=== PATIENT | male | born 1940 | race Caucasian/White ===

== ENCOUNTER → 2017-08-24 | Outpatient (CLI) | payer OTHER, MEDICARE | LOC: BMCIMAGING 15:01 | PROVIDERS: ATTEND Registered Nurse General Practice | DX: Z13.820 Encounter for screening for osteoporosis (principal); M85.80 Other specified disorders of bone density and structure, unspecified site ==

== ENCOUNTER → 2018-04-19 | Outpatient (CLI) | payer OTHER, MEDICARE | LOC: BHFA 09:15 | PROVIDERS: ATTEND Internal Medicine Interventional Cardiology | DX: I48.91 Unspecified atrial fibrillation (principal) ==

== ENCOUNTER → 2018-08-25 | Outpatient (CLI) | payer OTHER, MEDICARE | LOC: BMCIMAGING 14:47 | PROVIDERS: ATTEND Physician Assistant | DX: N43.3 Hydrocele, unspecified (principal) ==

== ENCOUNTER 2018-09-01 14:41 | Day surgery (SDC) | payer OTHER, MEDICARE ==
[2018-09-01] MEDS ORDERED: ceFAZolin 2 GM/DEXTROSE 100 ML IV ONE (14:47)
[2018-09-01] MEDS ORDERED: LR 1,000 ML IV ONE (14:48)
--- NOTE | 2018-09-01 15:07 | POSTANESTH ---
Post Anesthetic Evaluation Cardiovascular Status: Normal, Stable Respiratory Status: Normal, Stable Level of Consciousness/Mental Status: Can Participate in Eval, Moderately Sleepy Pain Control: Adequate, Prn Tx Ordered Nausea/Vomiting Control: Adequate, Prn Tx Ordered Complications Possibly Related to Anesthesia: None Noted
--- NOTE | 2018-09-01 15:11 | PDANEPAE ---
ANE History of Present Illness 78 yo male with recurrent inguinal hernia for open repair. ANE Past Medical History - Cardiovascular History Hx Hypertension: No Hx Arrhythmias: Yes Hx Chest Pain: No Hx Coronary Artery / Peripheral Vascular Disease: No Hx CHF / Valvular Disease: No Hx Palpitations: No Cardiovascular History Comment: afib - s/p CV x1 in 2013, in NSR currently - Pulmonary History Hx COPD: No Hx Asthma/Reactive Airway Disease: No Hx Recent Upper Respiratory Infection: No Hx Oxygen in Use at Home: No Hx Sleep Apnea: No Sleep Apnea Screening Result - Last Documented: Negative - Neurologic History Hx Cerebrovascular Accident: Yes Hx Seizures: No Hx Dementia: No Neurologic History Comment: parkinsons. spinal stenosis. poss TIA - Endocrine History Hx Diabetes: No Hypothyroid: Yes Hyperthyroid: No Obesity: no - Renal History Hx Renal Disorders: Yes Renal History Comment: hydrocoele. hx of hematuria. pt reports having the bladder of a 78 yo man - Liver History Hx Hepatic Disorders: No - Neurological & Psychiatric Hx Hx Neurological and Psychiatric Disorders: No - Cancer History Hx Cancer: Yes Cancer History Comment: skin - Congenital Disorder History Hx Congenital Disorders: No - GI History Hx Gastrointestinal Disorders: Yes Gastrointestinal History Comment: hx of hernia repair. chronic constipation - Other Health History Other Health History: wears reading glasses. diplopia - Chronic Pain History Chronic Pain: Yes (lower back) - Surgical History Prior Surgeries: hernia repair x2. cardioversion in 2013 ANE Review of Systems Review of Systems: - Exercise capacity METS (RN): 4 METS - Systems Constitutional: Reports: no symptoms ANE Patient History - Allergies Allergies/Adverse Reactions: diclofenac Allergy (Verified 08/31/18 10:27) Rash - Home Medications Home Medications: Levothyroxine [Synthroid 50 mcg (RX)] 05/21/12 [Last Taken 05/20/12] Aspirin 81mg (*) 08/31/18 [Last Taken 08/24/18] Carbidopa-Levo 25-100 mg Odt 08/31/18 [Last Taken Unknown] Diltiazem 08/31/18 [Last Taken Unknown] Docusate Sodium 08/31/18 [Last Taken Unknown] Herbals/Supplements -Info Only 08/31/18 [Last Taken 08/31/18] Ketoconazole 08/31/18 [Last Taken Unknown] Myrbetriq 08/31/18 [Last Taken Unknown] Rasagiline Mesylate 08/31/18 [Last Taken Unknown] - NPO status NPO Since - Liquids (Date): 09/01/18 NPO Since - Liquids (Time): 13:00 NPO Since - Solids (Date): 08/31/18 - Anes Hx Anes Hx: no prior problems - Smoking Hx Smoking Status: Never smoked - Alcohol Use Alcohol Use: Rarely - Family Anes Hx Family Anes Hx: neg - N/A Family Hx Anesthesia Complications: none ANE Labs/Vital Signs - Vital Signs Vital Signs: reviewed preoperatively; see RN documention for details Height: 180.34 cm Weight: 77.111 kg ANE Physical Exam - Airway Neck exam: decreased ROM Mallampati Score: Class 2 Mouth exam: poor dentition - Pulmonary Pulmonary: clear to auscultation - Cardiovascular Cardiovascular: regular rate and rhythym - ASA Status ASA Status: III ANE Anesthesia Plan Anesthesia Plan: GA w LMA
[2018-09-01] MEDS ORDERED: EPINEPHrine 1 MG/ML INJ ONE (15:48)
[2018-09-01] MEDS ORDERED: BUPIVACAINE 0.25% 30 ML SDV ONE (15:48)
[2018-09-01] MEDS ORDERED: LIDOCAINE 1% 300 MG/30 ML SDV ONE (15:48)
[2018-09-01] MEDS ORDERED: fentaNYL 100 MCG/2 ML INJ ONE ×2 (16:00→17:04)
[2018-09-01] MEDS ORDERED: LIDOCAINE 2% 5 ML SDV ONE (16:00)
[2018-09-01] MEDS ORDERED: PROPOFOL 200 MG/20 ML VIAL ONE (16:00)
[2018-09-01] MEDS ORDERED: DEXAMETHASONE 4 MG/ML VIAL ONE (16:00)
--- NOTE | 2018-09-01 17:19 | PDHPUP ---
History & Physical Update H&P update statement: This history and physical update is based on an assessment of the patient which was completed after admission or registration (within 24 hours), but prior to the surgery/procedure. H&P update: H&P reviewed & patient examined, no change in patient's condition since H&P completed (patient seen pre-op and update omitted inadvertantly/)
--- NOTE | 2018-09-01 17:21 | POSTOPPROG ---
Post Op Note Date of Operation: 09/01/18 Surgeon: Juan Daniel Duncan (, FACS) Environmental Journalist: Jeana Jackman PA-C Anesthesiologist: Ya Dixon DO Anesthesia: LMA Pre-op Diagnosis: recurrent LIH, non-communicating hydrocoel Procedure: open repair recurrent LIH/hydroceolectomy Findings: direct hernia recurrence, large non-communicating hydrocoel Inf/Abcess present in the surg proc area at time of surgery?: No
[2018-09-01] MEDS ORDERED: OXYCODONE/APAP 5/325 TAB PO PRN (17:22)
[2018-09-01] MEDS ORDERED: ONDANSETRON 4 MG/2 ML VIAL IVP PRN (17:37)
[2018-09-01] MEDS ORDERED: ACETAMINOPHEN 500 MG TAB PO PRN (17:37)
[2018-09-01] MEDS ORDERED: ALBUTEROL 3 ML DEYVIAL IH PRN (17:37)
[2018-09-01] MEDS ORDERED: HYDROCODONE/APAP 5/325 TAB PO PRN (17:37)
[2018-09-01] MEDS ORDERED: NALOXONE HCL 0.4 MG/ML INJ IVP PRN (17:37)
[2018-09-01] MEDS ORDERED: OXYCODONE/APAP 5/325 TAB ONE (18:25)
[2018-09-01 19:15] VITALS: BP 127/77
--- NOTE | 2018-09-02 05:48 | GOP ---
DATE OF OPERATION: 09/01/2018 SURGEON: Juan Daniel Duncan MD, FACS ENERGY PROJECT ENGINEER: Jeana Jackman PA-C ANESTHESIA: General by laryngeal mask, Ya Leos MD PREOPERATIVE DIAGNOSIS: 1. Recurrent left inguinal hernia. 2. Noncommunicating hydrocele. POSTOPERATIVE DIAGNOSIS: 1. Recurrent direct inguinal hernia. 2. Noncommunicating hydrocele. PROCEDURE PERFORMED: 1. Open repair of direct left inguinal hernia. 2. Hydrocelectomy. FINDINGS: Moderate-sized direct inguinal hernia recurrence and large noncommunicating hydrocele excised and submitted for permanent section. ESTIMATED BLOOD LOSS: 10 mL. DESCRIPTION OF PROCEDURE: After informed consent was obtained, the patient was brought to the operating room and placed under general anesthesia. The left groin and scrotum were prepped and draped in usual fashion. Before proceeding, a time-out and identification of the patient was performed. 0.25% Marcaine with epinephrine was used to establish a regional field block and the planned incision site was infiltrated. An oblique incision was made over the inguinal canal and carried through the skin and subcutaneous tissues. Hemostasis was secured with cautery. A dissection was carried out down to the external oblique fascia. The hernia was identified and the external oblique fascia opened using careful sharp dissection to avoid injury to the vas deferens. There was considerable scar tissue at the level of the external oblique fascia, and this required slow careful sharp dissection to free up the spermatic cord from the hernia sac. The hernia was a direct hernia and the cord structures were from the hernia sac, which was then reduced into the preperitoneal space. The transversalis fascia was repaired with continuous running 3-0 Vicryl suture to hold the hernia in place while we performed the hydrocelectomy as follows. The hydrocele was mobilized from the scrotum and along with the testicle mobilized into the field. The tunica vaginalis was incised and the hydrocele was peeled out intact and submitted for permanent section. Hemostasis was secured with spot cautery. The testicle was returned to the scrotum with the remainder of the cord structures intact. The inguinal floor was reconstructed with a standard Jonas technique using a sheet of polypropylene mesh cut to an appropriate shape and sutured to the inguinal ligament starting at the pubic tubercle medially and extending to the internal ring laterally. Medially and superiorly, the mesh was secured to the internal oblique fascia with interrupted 0 Nurolon sutures. At the internal ring, the mesh was split in a keyhole fashion horizontally around the cord structures and was sutured to itself and the inguinal ligament with interrupted 0 Nurolon sutures. The tag end of the mesh was tucked between the external oblique and internal oblique fascias. Upon completion, the repair was intact without undue tension. The external oblique fascia was closed over the cord structures with continuous running 3-0 Vicryl suture. Subcutaneous tissues were closed with interrupted 3- 0 Monocryl sutures. Skin was closed with 4-0 Monocryl suture in a subcuticular fashion. Mastisol and Steri-Strips were applied. Needle, sponge, and instrument count were correct. COMPLICATIONS: None. /[id number]/MODL MTDD
== END 2018-09-01 19:09 | disposition home or self-care (01) ==
LOC: FSGY 14:41
PROVIDERS: ATTEND Surgery
DX: K40.91 Unilateral inguinal hernia, without obstruction or gangrene, recurrent (principal); N43.2 Other hydrocele
CPT/HCPCS: C1781; J0171; J0690; J1100; J2704; J3010

== ENCOUNTER → 2019-01-10 | Outpatient (CLI) | payer OTHER, MEDICARE | LOC: BMCIMAGING 16:29 | PROVIDERS: ATTEND Family Medicine | DX: K59.00 Constipation, unspecified (principal) ==

== ENCOUNTER → 2019-01-26 | Outpatient (CLI) | payer OTHER, MEDICARE ==
[~2019-01-26] MED LIST: IOPAMIDOL (ISOVUE-300) 100 ML BTL ONE
== END ==
LOC: FIMAGING 08:35
PROVIDERS: ATTEND Family Medicine
DX: K59.00 Constipation, unspecified (principal); N28.1 Cyst of kidney, acquired; N40.0 Benign prostatic hyperplasia without lower urinary tract symptoms; M51.36 Other intervertebral disc degeneration, lumbar region; M46.96 Unspecified inflammatory spondylopathy, lumbar region
CPT/HCPCS: 74177; Q9967; 82565-PO

== ENCOUNTER 2019-04-26 16:29 | Observation (INO) | payer OTHER, MEDICARE | END 2019-04-27 13:46 | disposition home or self-care (01) | LOC: F2W 18:45 ==